=== PATIENT | female | born 1960 | race Caucasian/White ===

== ENCOUNTER 2016-06-18 08:27 | Emergency (ER) | payer MEDICAID ==
[~2016-06-18] VITALS: Ht 170.2 cm; Wt 51.3 kg
[2016-06-18] MEDS ORDERED: LISINOPRIL 20 MG TABLET ONE (08:56)
[2016-06-18] MEDS ORDERED: LORazepam 2 MG/ML, 1ML ONE (08:56)
[2016-06-18] MEDS ORDERED: LORazepam 2 MG/ML, 1ML IVPush ONE (09:00)
[2016-06-18] MEDS ORDERED: SODIUM CHLORIDE FLUSH 10ML SYR IVF ONE (09:00)
[2016-06-18] MEDS ORDERED: ALBUTEROL/IPRATROPIUM 2.5MG/0.5MG, 3 ML NPPB SCH (09:00)
[2016-06-18] MEDS ORDERED: ALBUTEROL/IPRATROPIUM 2.5MG/0.5MG, 3 ML ONE ×2 (09:20→10:52)
[2016-06-18 09:25] LABS: BLOOD UREA NITROGEN 16 mg/dL (7-18)
[2016-06-18 09:31] LABS: IS PT STATUS REG ER OR PRE ER? YES
[2016-06-18] MEDS ORDERED: ALBUTEROL/IPRATROPIUM 2.5MG/0.5MG, 3 ML NPPB ONE (10:30)
[2016-06-18 11:20] VITALS: BP 118/87
== END 2016-06-18 11:23 | disposition home or self-care (01) ==
LOC: ED 09:12
DX: J20.8 Acute bronchitis due to other specified organisms (principal); J45.909 Unspecified asthma, uncomplicated; J44.1 Chronic obstructive pulmonary disease with (acute) exacerbation
CPT/HCPCS: 36415; 71020; 80048; 82040; 83880; 84484; 85025; 93005; 94640; 96374; 99285; J2060; J7512; J7620

== ENCOUNTER 2016-08-15 08:20 | Emergency (ER) | payer MEDICAID ==
[~2016-08-15] VITALS: Ht 170.2 cm; Wt 56.1 kg
[2016-08-15 08:25] VITALS: BP 169/103
[2016-08-15] MEDS ORDERED: HYDROcodone/APAP 5/325 TABLET PO ONE (08:59)
[2016-08-15 09:43] LABS: ASPARTATE AMINO TRANSFERASE 23 U/L (15-37); BLOOD UREA NITROGEN 14 mg/dL (7-18)
[2016-08-15] MEDS ORDERED: HYDROcodone/APAP 5/325 TABLET ONE (09:54)
[2016-08-15] MEDS ORDERED: CLINDAMYCIN 300 MG CAPSULE PO ONE (10:00)
== END 2016-08-15 10:47 | disposition home or self-care (01) ==
LOC: ED 08:57
DX: L03.114 Cellulitis of left upper limb (principal); L03.91 Acute lymphangitis, unspecified; F17.210 Nicotine dependence, cigarettes, uncomplicated; I10 Essential (primary) hypertension; J44.9 Chronic obstructive pulmonary disease, unspecified
CPT/HCPCS: 36415; 80053; 85025; 99284

== ENCOUNTER 2016-08-15 23:05 | Emergency (ER) | payer MEDICAID ==
[2016-08-15 23:08] VITALS: BP 121/74
[2016-08-15] MEDS ORDERED: HYDROcodone/APAP 5/325 TABLET PO ONE (23:30)
[2016-08-15] MEDS ORDERED: HYDROcodone/APAP 5/325 TABLET ONE (23:34)
== END 2016-08-15 23:57 | disposition home or self-care (01) ==
LOC: ED 23:11
DX: R10.32 Left lower quadrant pain (principal); K41.91 Unilateral femoral hernia, without obstruction or gangrene, recurrent; I10 Essential (primary) hypertension; Z90.710 Acquired absence of both cervix and uterus
CPT/HCPCS: 99283

== ENCOUNTER 2018-02-08 17:07 | Emergency (ER) | payer MEDICAID ==
[~2018-02-08] VITALS: Ht 170.2 cm; Wt 54.5 kg
[2018-02-08 17:49] LABS: BASOPHILS # (AUTO) 0.02 x10^3/uL (0-0.1); BASOPHILS % (AUTO) 0 % (0-1); EOSINOPHILS # (AUTO) 0.19 x10^3/uL (0-0.4); EOSINOPHILS % (AUTO) 2 % (1-7); LYMPHOCYTES # (AUTO) 1.15 x10^3/uL (1-3.4); LYMPHOCYTES % (AUTO) 12 % (22-44); MD NO; MEAN CORPUSCULAR HEMOGLOBIN 32.1 pg (27.0-34.8); MEAN CORPUSCULAR HGB CONC 33.7 g/dL (32.4-35.8); MEAN CORPUSCULAR VOLUME 95.3 fL (80-100); MEAN PLATELET VOLUME 8.9 fL (7.4-10.4); MONOCYTES # (AUTO) 0.46 x10^3/uL (0.2-0.8); MONOCYTES % (AUTO) 5 % (2-9); NEUTROPHILS # (AUTO) 7.74 x10^3/uL (1.8-6.8); NEUTROPHILS % (AUTO) 81 % (42-75); PLATELET COUNT 293 x10^3/uL (130-400); RED BLOOD COUNT 5.12 x10^6/uL (3.82-5.3)
[2018-02-08 17:55] LABS: ALANINE AMINOTRANSFERASE 68 U/L (12-78); ALBUMIN 3.3 g/dL (3.4-5.0); ANION GAP 6 mmol/L (5-15); CALCIUM 8.5 mg/dL (8.5-10.1); CHLORIDE 112 mmol/L (98-107); CREATININE 0.93 mg/dL (0.55-1.02)
[2018-02-08 17:57] LABS: ALKALINE PHOSPHATASE 101 U/L (45-117); BILIRUBIN,TOTAL 0.3 mg/dL (0.2-1.0)
[2018-02-08 18:04] LABS: MICROSCOPIC AUTO
[2018-02-08 18:06] LABS: CULTURE INDICATED? YES
[2018-02-08 19:31] VITALS: BP 111/74
== END 2018-02-08 19:38 | disposition home or self-care (01) ==
LOC: ED 19:32
DX: K40.91 Unilateral inguinal hernia, without obstruction or gangrene, recurrent (principal); E11.9 Type 2 diabetes mellitus without complications; J44.9 Chronic obstructive pulmonary disease, unspecified; I10 Essential (primary) hypertension; I34.1 Nonrheumatic mitral (valve) prolapse; Z90.710 Acquired absence of both cervix and uterus; F17.200 Nicotine dependence, unspecified, uncomplicated
CPT/HCPCS: 36415; 74021; 80053; 81001; 85025; 87086; 99284

== ENCOUNTER 2018-04-08 13:03 | Emergency (ER) | payer MEDICAID ==
[~2018-04-08] VITALS: Ht 170.2 cm; Wt 51.1 kg
[2018-04-08 13:17] VITALS: BP 116/76
[2018-04-08] MEDS ORDERED: METHOCARBAMOL 750 MG TABLET PO ONE (13:30)
[2018-04-08] MEDS ORDERED: KETOROLAC 30 MG/1 ML IM ONE (13:30)
[2018-04-08] MEDS ORDERED: METHOCARBAMOL 750 MG TABLET ONE (13:35)
[2018-04-08] MEDS ORDERED: KETOROLAC 30 MG/1 ML ONE (13:35)
== END 2018-04-08 13:55 | disposition home or self-care (01) ==
LOC: ED 13:45
DX: M54.5 Low back pain (principal); E11.9 Type 2 diabetes mellitus without complications; I10 Essential (primary) hypertension; J44.9 Chronic obstructive pulmonary disease, unspecified; F41.1 Generalized anxiety disorder; F17.200 Nicotine dependence, unspecified, uncomplicated; Z90.710 Acquired absence of both cervix and uterus; Z87.09 Personal history of other diseases of the respiratory system
CPT/HCPCS: 96372; 99283; J1885

== ENCOUNTER 2018-06-16 02:22 | Emergency (ER) | payer MEDICAID ==
[~2018-06-16] VITALS: Ht 170.2 cm; Wt 50.4 kg
[2018-06-16 02:27] VITALS: BP 121/81
--- NOTE | 2018-06-16 02:36 | NUR ---
pt stated "I got scratched by a dog last night and now there is a red streak going up my right arm." Pt denies fevers at home. pt sitting up on gurney, monitors applied, siderails up x2, call light within reach. awaiting erp for eval and orders
[2018-06-16] MEDS ORDERED: BACITRACIN ZINC OINT 500U/GM, 0.9 GM ONE (02:50)
--- NOTE | 2018-06-16 02:55 | NUR ---
right arm cleaned, applied bacitracin oint and dressing.
[2018-06-16] MEDS ORDERED: ACETAMINOPHEN 325 MG TABLET ONE (02:58)
[2018-06-16] MEDS ORDERED: ACETAMINOPHEN 325 MG TABLET PO ONE (03:00)
== END 2018-06-16 03:16 | disposition home or self-care (01) ==
LOC: ED 03:10
DX: S50.811A Abrasion of right forearm, initial encounter (principal); L03.113 Cellulitis of right upper limb; J44.9 Chronic obstructive pulmonary disease, unspecified; I10 Essential (primary) hypertension; I34.1 Nonrheumatic mitral (valve) prolapse; X58.XXXA Exposure to other specified factors, initial encounter; Y93.89 Activity, other specified; Y92.89 Other specified places as the place of occurrence of the external cause; Y99.8 Other external cause status
CPT/HCPCS: 99283

== ENCOUNTER 2019-01-19 18:11 | Emergency (ER) | payer MEDICAID ==
[~2019-01-19] VITALS: Ht 170.2 cm; Wt 53.1 kg
[~2019-01-19 18:11] MED LIST: APIX5TAB PO; AZIT500T10 PO; CEFD300C37 PO; FLUT1DIS3 INH; GUAI600T31 PO; IPRA3AMP30 NPPB; NICO-485 TD; OXYcodone/APAP 5/325MG PO; POLY17PO5 PO; PRED10TA PO; TIOT18CA INH
[2019-01-19] MEDS ORDERED: ASPIRIN 81 MG TABLET CHEW ONE (18:52)
[2019-01-19] MEDS ORDERED: ALBUTEROL/IPRATROPIUM 2.5MG/0.5MG, 3 ML NPPB ONE ×2 (19:00→20:30)
[2019-01-19] MEDS ORDERED: ASPIRIN 81 MG TABLET CHEW PO ONE (19:00)
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
--- NOTE | 2019-01-19 19:04 | NUR ---
pt medicated per emar. pt tolerated well.
[2019-01-19 19:13] LABS: BASOPHILS # (AUTO) 0.02 x10^3/uL (0-0.1); BASOPHILS % (AUTO) 1 % (0-1); EOSINOPHILS # (AUTO) 0.09 x10^3/uL (0-0.4); EOSINOPHILS % (AUTO) 2 % (1-7); LYMPHOCYTES # (AUTO) 0.78 x10^3/uL (1-3.4); LYMPHOCYTES % (AUTO) 21 % (22-44); MD NO; MEAN CORPUSCULAR HEMOGLOBIN 32.6 pg (27.0-34.8); MEAN CORPUSCULAR HGB CONC 32.7 g/dL (32.4-35.8); MEAN CORPUSCULAR VOLUME 99.6 fL (80-100); MEAN PLATELET VOLUME 8.6 fL (7.4-10.4); MONOCYTES # (AUTO) 0.28 x10^3/uL (0.2-0.8); MONOCYTES % (AUTO) 8 % (2-9); NEUTROPHILS % (AUTO) 68 % (42-75); PLATELET COUNT 224 x10^3/uL (130-400); RED BLOOD COUNT 4.15 x10^6/uL (3.82-5.3); RED CELL DISTRIBUTION WIDTH 15.3 % (9.6-15.2)
[2019-01-19 19:18] LABS: ALANINE AMINOTRANSFERASE 32 U/L (12-78); ALBUMIN 2.6 g/dL (3.4-5.0); ANION GAP 8 mmol/L (5-15); CALCIUM 8.3 mg/dL (8.5-10.1); CHLORIDE 108 mmol/L (98-107)
[2019-01-19 19:23] LABS: ALKALINE PHOSPHATASE 87 U/L (45-117); BILIRUBIN,TOTAL 0.4 mg/dL (0.2-1.0); TOTAL PROTEIN 5.7 g/dL (6.4-8.2); TROPONIN I < 0.015 ng/mL (0.000-0.045)
[2019-01-19] MEDS ORDERED: OMNIPAQUE 350 MG/ML, 100ML BOTTLE ONE (19:30)
--- NOTE | 2019-01-19 19:48 | NUR ---
piv est on r ac at this time. pt tolerated well.
--- NOTE | 2019-01-19 19:56 | NUR ---
pt in ct now.
--- NOTE | 2019-01-19 20:10 | NUR ---
PT BACK TO ROOM FROM CT AT THIS TIME.
[2019-01-19] MEDS ORDERED: SODIUM CHLORIDE FLUSH 10ML SYR IVF ONE (20:30)
--- NOTE | 2019-01-19 21:08 | NUR ---
PT RESTING IN [facility]. PT'S AOX4. RESPS EVEN AND UNLABORED. ALL MONITORS IN PLACE. CALL LIGHT WITHIN REACH.
[2019-01-19] MEDS ORDERED: ALBUTEROL SULFATE 2.5 MG/3 ML ONE (22:00)
[2019-01-19] MEDS ORDERED: ALBUTEROL SULFATE 2.5 MG/3 ML NPPB ONE (22:00)
[2019-01-19 22:13] VITALS: BP 124/80
--- NOTE | 2019-01-19 22:28 | NUR ---
PT RESTING IN [facility]. RESPS EVEN AND UNLABORED. PT'S AOX4. ALL MONITORS IN PLACE. CALL LIGHT WITHIN REACH. AWAITING DISPO.
--- NOTE | 2019-01-19 22:56 | NUR ---
Patient given discharge instructions and they have confirmed that they understand the instructions. Patient ambulatory with steady gait.
== END 2019-01-19 22:57 | disposition home or self-care (01) ==
LOC: ED 19:05
DX: J44.1 Chronic obstructive pulmonary disease with (acute) exacerbation (principal); F17.200 Nicotine dependence, unspecified, uncomplicated; I10 Essential (primary) hypertension; Z90.710 Acquired absence of both cervix and uterus
CPT/HCPCS: 36415; 70360; 71045; 71275; 80053; 83880; 84484; 85025; 93005; 94640; 99285; J7512; J7613; J7620; Q9967

== ENCOUNTER 2019-02-23 16:38 | Emergency (ER) | payer MEDICAID ==
[~2019-02-23] VITALS: Ht 170.2 cm; Wt 54.4 kg
[2019-02-23] MEDS ORDERED: ALBUTEROL/IPRATROPIUM 2.5MG/0.5MG, 3 ML NPPB ONE (17:30)
[2019-02-23] MEDS ORDERED: ALBUTEROL/IPRATROPIUM 2.5MG/0.5MG, 3 ML ONE (17:33)
--- NOTE | 2019-02-23 17:45 | NUR ---
IV PLACED, UNABLE TO DRAW LABS WITH START. PT STATES IV PAINFUL, FLUSH 20CC NS WITHOUT ANY SIGN OF INFILTRATE. PT INSTRUCTED IF TOO PAINFUL, 2ND IV SHOULD BE PLACED. PT REFUSING ANY OTHER IV STARTS AT THIS TIME, STATING "NOBODY EVER CAN GET IT RIGHT, I WANT A ICE HANDLER". LAB CALLED TO DRAW.
[2019-02-23 17:58] LABS: BASOPHILS # (AUTO) 0.03 x10^3/uL (0-0.1); BASOPHILS % (AUTO) 1 % (0-1); EOSINOPHILS # (AUTO) 0.17 x10^3/uL (0-0.4); EOSINOPHILS % (AUTO) 3 % (1-7); LYMPHOCYTES # (AUTO) 1.64 x10^3/uL (1-3.4); LYMPHOCYTES % (AUTO) 32 % (22-44); MD NO; MEAN CORPUSCULAR HEMOGLOBIN 30.2 pg (27.0-34.8); MEAN CORPUSCULAR HGB CONC 32.1 g/dL (32.4-35.8); MEAN PLATELET VOLUME 8.4 fL (7.4-10.4); MONOCYTES # (AUTO) 0.39 x10^3/uL (0.2-0.8); MONOCYTES % (AUTO) 8 % (2-9); NEUTROPHILS # (AUTO) 2.89 x10^3/uL (1.8-6.8); NEUTROPHILS % (AUTO) 56 % (42-75); PLATELET COUNT 288 x10^3/uL (130-400); RED BLOOD COUNT 4.22 x10^6/uL (3.82-5.3); RED CELL DISTRIBUTION WIDTH 15.1 % (9.6-15.2)
[2019-02-23 18:10] LABS: ALBUMIN 2.8 g/dL (3.4-5.0); ANION GAP 4 mmol/L (5-15); CALCIUM 8.7 mg/dL (8.5-10.1); CHLORIDE 110 mmol/L (98-107); CREATININE 0.92 mg/dL (0.55-1.02)
[2019-02-23 18:13] LABS: TROPONIN I < 0.015 ng/mL (0.000-0.045)
[2019-02-23] MEDS ORDERED: SODIUM CHLORIDE FLUSH 10ML SYR IVF ONE (18:30)
--- NOTE | 2019-02-23 18:30 | NUR ---
2ND IV PLACED BY TASK RNJASSI.
[2019-02-23 20:49] VITALS: BP 122/61
== END 2019-02-23 20:51 | disposition home or self-care (01) ==
LOC: ED 17:50
DX: J20.8 Acute bronchitis due to other specified organisms (principal); B34.9 Viral infection, unspecified; I10 Essential (primary) hypertension; J44.9 Chronic obstructive pulmonary disease, unspecified; F17.200 Nicotine dependence, unspecified, uncomplicated; Z90.710 Acquired absence of both cervix and uterus
CPT/HCPCS: 36415; 71275; 80048; 82040; 84484; 85025; 93005; 94640; 99284; J7512; J7620

== ENCOUNTER 2019-06-28 11:59 | Emergency (ER) | payer MEDICAID ==
[~2019-06-28] VITALS: Ht 170.2 cm; Wt 47.6 kg
--- NOTE | 2019-06-28 12:08 | NUR ---
BIB [facility] FOR LEFT INGUINAL PAIN THAT STARTED 3 HOURS AGO. HX INGUINAL HERNIA. PT CONNECTED TO MONITORING. CALL LIGHT IN REACH. EKG DONE.
[2019-06-28] MEDS ORDERED: KETOROLAC 30 MG/1 ML ONE (12:57)
[2019-06-28] MEDS ORDERED: KETOROLAC 30 MG/1 ML IM ONE (13:00)
[2019-06-28] MEDS ORDERED: IBUPROFEN 800 MG TABLET ONE (13:02)
[2019-06-28] MEDS ORDERED: HYDROcodone/APAP 5/325 TABLET ONE (13:02)
--- NOTE | 2019-06-28 13:04 | NUR ---
PT GOING TO XRAY.
--- NOTE | 2019-06-28 13:11 | NUR ---
PT REFUSED TORADOL SHOT, "I HATE NEEDLES". NOTIFIED. MEDS ORDERED PER APR. PT OXYGEN LEVEL 88% RA, WHEN RESTING. PT STATES THAT'S HER BASELINE FOR HER COPD. NADN.
--- NOTE | 2019-06-28 13:14 | NUR ---
ALL RESULTS ARE BACK AT THIS TIME. CHART UP FOR RECHECK.
[2019-06-28] MEDS ORDERED: HYDROcodone/APAP 5/325 TABLET PO ONE (13:30)
[2019-06-28] MEDS ORDERED: IBUPROFEN 600 MG TABLET PO ONE (13:30)
--- NOTE | 2019-06-28 13:43 | NUR ---
PT RESTING ON GURNEY. RESP EVEN AND UNLABORED. CONSISTANT OXYGEN LEVEL AT 88%.
[2019-06-28 14:01] VITALS: BP 130/88
--- NOTE | 2019-06-28 14:02 | NUR ---
TASK RN: Patient/Caregiver given discharge instructions and they have confirmed that they understand the instructions. Patient ambulatory with steady gait.
== END 2019-06-28 14:03 | disposition home or self-care (01) ==
LOC: ED 12:11
DX: K40.91 Unilateral inguinal hernia, without obstruction or gangrene, recurrent (principal); R10.32 Left lower quadrant pain; I10 Essential (primary) hypertension; J44.9 Chronic obstructive pulmonary disease, unspecified; I44.30 Unspecified atrioventricular block; Z90.710 Acquired absence of both cervix and uterus
CPT/HCPCS: 74021; 93005; 99283

== ENCOUNTER 2019-08-10 13:30 | Emergency (ER) | payer MEDICAID ==
[~2019-08-10] VITALS: Ht 170.2 cm; Wt 52.0 kg
--- NOTE | 2019-08-10 13:42 | NUR ---
GIANCARLO PUGH FROM [facility]. PT C/O BILAT FLANK PAIN STARTING LAST NIGHT. GENERALIZED PAIN STARTING TODAY. PT REFUSED TO GET INTO GOWN. PT CONNECTED TO MONITORING. CALL LIGHT IN REACH. PT GETTING INTO GOWN AFTER MD AT BEDSIDE AND REQUESTED GOWN.
--- NOTE | 2019-08-10 13:46 | NUR ---
PT AMBULATED TO RESTROOM WITH STEADY GAIT TO PROVIDE URINE SAMPLE. UA ORDERED PER PROTOCOL AND SENT TO LAB.
[2019-08-10] MEDS ORDERED: KETOROLAC 30 MG/1 ML IVPush ONE (14:00)
[2019-08-10] MEDS ORDERED: SODIUM CHLORIDE 0.9% 1,000ML IVBOLUS ONE (14:00)
[2019-08-10] MEDS ORDERED: SODIUM CHLORIDE FLUSH 10ML SYR IVF ONE (14:00)
[2019-08-10 14:03] LABS: MICROSCOPIC INDICATED
[2019-08-10] MEDS ORDERED: KETOROLAC 30 MG/1 ML ONE (14:05)
--- NOTE | 2019-08-10 14:07 | NUR ---
PIV PLACED, LABS DRAWN. IVF RUNNING. IMPORT EXPORT MANAGER PER APR. LAB AT BEDSIDE FOR BLOOD CULTURES.
[2019-08-10 14:26] LABS: BASOPHILS # (AUTO) 0.02 x10^3/uL (0-0.1); BASOPHILS % (AUTO) 0 % (0-1); EOSINOPHILS # (AUTO) 0.02 x10^3/uL (0-0.4); EOSINOPHILS % (AUTO) 0 % (1-7); LYMPHOCYTES # (AUTO) 0.57 x10^3/uL (1-3.4); LYMPHOCYTES % (AUTO) 10 % (22-44); MD NO; MEAN CORPUSCULAR HEMOGLOBIN 30.6 pg (27.0-34.8); MEAN CORPUSCULAR VOLUME 92.8 fL (80-100); MEAN PLATELET VOLUME 9.1 fL (7.4-10.4); MONOCYTES # (AUTO) 0.34 x10^3/uL (0.2-0.8); MONOCYTES % (AUTO) 6 % (2-9); NEUTROPHILS # (AUTO) 5.06 x10^3/uL (1.8-6.8); NEUTROPHILS % (AUTO) 84 % (42-75); PLATELET COUNT 144 x10^3/uL (130-400); RED BLOOD COUNT 4.44 x10^6/uL (3.82-5.3); RED CELL DISTRIBUTION WIDTH 17.1 % (9.6-15.2)
[2019-08-10 14:32] LABS: ALBUMIN 2.6 g/dL (3.4-5.0); ANION GAP 7 mmol/L (5-15); CALCIUM 8.1 mg/dL (8.5-10.1); CHLORIDE 104 mmol/L (98-107); CREATININE 0.98 mg/dL (0.55-1.02)
--- NOTE | 2019-08-10 14:46 | NUR ---
ALL RESULTS ARE BACK AT THIS TIME. CHART UP FOR RECHECK.
[2019-08-10 14:57] VITALS: BP 103/72
== END 2019-08-10 16:18 | disposition home or self-care (01) ==
LOC: ED 16:17
DX: M79.652 Pain in left thigh (principal); M79.651 Pain in right thigh; R42 Dizziness and giddiness; M54.5 Low back pain; M54.9 Dorsalgia, unspecified; I21.9 Acute myocardial infarction, unspecified; J44.9 Chronic obstructive pulmonary disease, unspecified; Z90.710 Acquired absence of both cervix and uterus
CPT/HCPCS: 36415; 71045; 80048; 81001; 82040; 83605; 84145; 85025; 87040; 87086; 93005; 96361; 96374; 99285; J1885; J7030

== ENCOUNTER 2019-11-06 10:35 | Emergency (ER) | payer MEDICAID ==
[~2019-11-06] VITALS: Ht 160 cm; Wt 50.3 kg
[2019-11-06 10:45] VITALS: BP 123/75
--- NOTE | 2019-11-06 11:06 | NUR ---
PT SITTING UPRIGHT ON GURNEY ON CELL PHONE, NAD NOTED. ERP AT BEDSIDE. CALL LIGHT WITHIN REACH. PT DENIES ANY NEEDS AT THIS TIME.
--- NOTE | 2019-11-06 11:16 | NUR ---
Patient given discharge instructions and they have confirmed that they understand the instructions. Patient ambulatory with steady gait.
== END 2019-11-06 11:18 | disposition home or self-care (01) ==
LOC: ED 10:50
DX: L03.312 Cellulitis of back [any part except buttock and flank] (principal); I10 Essential (primary) hypertension; Z87.891 Personal history of nicotine dependence
CPT/HCPCS: 99283

== ENCOUNTER 2019-11-14 09:38 | Observation (INO) | payer MEDICAID ==
[~2019-11-14] VITALS: Ht 170.2 cm; Wt 52.6 kg
--- NOTE | 2019-11-14 09:51 | NUR ---
BIB EMS, C/O LLQ ABD PAIN. PT WITH HX OF HERNIA, RPTS "I FELT IT POP OUT THIS MORNING" VISABLE PROTRUTION NOTED TO LEFT GROING AREA. PAIN 11/23. JOSE JUAN COLUNGA AT BEDSIDE, ASSESSMENT AND POC DISCUSSED. QUESTIONS ANSWERED. PT ON MONITOR VSS, CALL LIGHT W/I REACH
[2019-11-14] MEDS ORDERED: ONDANSETRON 2MG/ML, 2ML ONE ×2 (09:56→15:01)
[2019-11-14] MEDS ORDERED: MORPHINE SULFATE 4 MG/ML, 1ML ONE ×2 (09:56→13:09)
[2019-11-14] MEDS ORDERED: LORazepam 2 MG/ML, 1ML ONE (09:57)
[2019-11-14] MEDS ORDERED: SODIUM CHLORIDE FLUSH 10ML SYR IVF ONE (10:00)
[2019-11-14] MEDS ORDERED: LORazepam 2 MG/ML, 1ML IVPush ONE (10:00)
[2019-11-14] MEDS ORDERED: ONDANSETRON 2MG/ML, 2ML IVPush ONE (10:00)
[2019-11-14] MEDS: MORPHINE SULFATE 4 MG/ML, 1ML IVPush PRN ×2 (10:17→13:12)
[2019-11-14 10:19] LABS: BASOPHILS # (AUTO) 0.02 x10^3/uL (0-0.1); BASOPHILS % (AUTO) 0 % (0-1); EOSINOPHILS # (AUTO) 0.07 x10^3/uL (0-0.4); EOSINOPHILS % (AUTO) 1 % (1-7); LYMPHOCYTES # (AUTO) 1.08 x10^3/uL (1-3.4); LYMPHOCYTES % (AUTO) 21 % (22-44); MD NO; MEAN PLATELET VOLUME 7.8 fL (7.4-10.4); MONOCYTES # (AUTO) 0.34 x10^3/uL (0.2-0.8); MONOCYTES % (AUTO) 7 % (2-9); NEUTROPHILS # (AUTO) 3.61 x10^3/uL (1.8-6.8); NEUTROPHILS % (AUTO) 71 % (42-75); PLATELET COUNT 233 x10^3/uL (130-400); RED BLOOD COUNT 4.98 x10^6/uL (3.82-5.3); RED CELL DISTRIBUTION WIDTH 15.5 % (9.6-15.2)
--- NOTE | 2019-11-14 10:22 | NUR ---
BREAK RN: PT MED NOTED FOR PAIN 11/23. SBAR RPT TO XENA CLARKE
[2019-11-14 10:31] LABS: ALANINE AMINOTRANSFERASE 19 U/L (12-78); ALBUMIN 3.3 g/dL (3.4-5.0); ANION GAP 5 mmol/L (5-15); CHLORIDE 110 mmol/L (98-107); CREATININE 0.87 mg/dL (0.55-1.02)
[2019-11-14 10:33] LABS: ALKALINE PHOSPHATASE 94 U/L (45-117); BILIRUBIN,TOTAL 0.3 mg/dL (0.2-1.0)
--- NOTE | 2019-11-14 10:51 | NUR ---
REC'D REPORT FROM VINCE Camilo RN, AT THIS TIME
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
--- NOTE | 2019-11-14 11:54 | NUR ---
TASK RN: GEN SURGERY PAGED FOR CONSULT. PT TO BE NPO
--- NOTE | 2019-11-14 13:13 | NUR ---
PT REPORTS INCREASED PAIN, BP WENT UP TO 210/115, UPDATED ERMD, MEDICATED PER MAR.
[2019-11-14] MEDS ORDERED: CHLORHEXIDINE 15 ML UDC MM STA (14:23)
[2019-11-14] MEDS ORDERED: CHLORHEXIDINE 15 ML UDC ONE (14:23)
--- NOTE | 2019-11-14 14:31 | NUR ---
REPORT GIVEN TO PRE-OP RN
[2019-11-14] MEDS ORDERED: BUPIVACAINE/PF 0.5% ONE (14:36)
[2019-11-14] MEDS ORDERED: EPINEPHRINE 1 MG/ML, 1ML ONE (14:36)
[2019-11-14] MEDS ORDERED: FENTANYL PF 100 MCG/2ML ONE ×4 (14:58→17:02)
[2019-11-14] MEDS ORDERED: MIDAZOLAM 1 MG/ML, 2ML ONE (14:58)
[2019-11-14] MEDS ORDERED: CEFAZOLIN 1,000 MG ONE (15:01)
[2019-11-14] MEDS ORDERED: GLYCOPYRROLATE 0.2MG/1ML, 5ML ONE (15:01)
[2019-11-14] MEDS ORDERED: PROPOFOL 10 MG/ML, 20ML ONE (15:01)
[2019-11-14] MEDS ORDERED: DEXAMETHASONE 4 MG/ML, 1ML ONE (15:01)
[2019-11-14] MEDS ORDERED: NEOSTIGMINE 1 MG/ML, 10ML ONE (15:01)
[2019-11-14] MEDS ORDERED: HYDROmorphone 1 MG/ML, 1ML INJ IVPush PRN (15:30)
[2019-11-14] MEDS ORDERED: ROCURONIUM 10MG/ML,5ML ONE (15:30)
[2019-11-14] MEDS ORDERED: morphine SULFATE 10 MG/ML, 1ML IVPush PRN (15:30)
[2019-11-14] MEDS ORDERED: hydrALAzine 20 MG/ML, 1ML IV PRN (15:30)
[2019-11-14] MEDS ORDERED: MEPERIDINE/PF 25MG/0.5ML IVPush PRN (15:30)
[2019-11-14] MEDS ORDERED: OXYcodone 5 MG/5 ML ORAL.SOL UDC PO PRN (15:30)
[2019-11-14] MEDS ORDERED: PROMETHAZINE 25 MG/ML, 1ML IVPush PRN (15:30)
[2019-11-14] MEDS ORDERED: HALOPERIDOL 5 MG/ML IV PRN (15:30)
[2019-11-14] MEDS ORDERED: ACETAMINOPHEN 325 MG TABLET PO PRN (15:30)
[2019-11-14] MEDS ORDERED: LABETALOL 5MG/ML, 20ML IV PRN (15:30)
[2019-11-14] MEDS ORDERED: OXYcodone 5 MG/5 ML ORAL.SOL UDC ONE (17:02)
[2019-11-14] MEDS: FENTANYL PF 100 MCG/2ML IV PRN ×2 (17:04→17:10)
[2019-11-14] MEDS ORDERED: hydrALAzine 20 MG/ML, 1ML ONE (17:22)
[2019-11-14] MEDS ORDERED: ALBUTEROL HFA 90 MCG/SPRAY INH PRN (19:30)
[2019-11-14] MEDS ORDERED: ONDANSETRON 2MG/ML, 2ML IV PRN (19:30)
[2019-11-14] MEDS ORDERED: ONDANSETRON 4 MG TABLET PO PRN (19:30)
[2019-11-14 20:00] VITALS: BP 135/89
[2019-11-14] MEDS: ACETAMINOPHEN 325 MG TABLET PO SCH (21:15)
[2019-11-14] MEDS: IBUPROFEN 200 MG TABLET PO SCH (21:15)
[2019-11-14] MEDS: OXYcodone IR 5MG TABLET PO PRN (21:45)
[2019-11-14 23:40] VITALS: BP 106/69
[2019-11-15] MEDS: OXYcodone IR 5MG TABLET PO PRN ×4 (01:22→17:29)
[2019-11-15 03:34] VITALS: BP_SYST 104; BP_SYST 112; BP_DIAS 75; BP_DIAS 78
[2019-11-15] MEDS: ACETAMINOPHEN 325 MG TABLET PO SCH ×4 (04:16→21:12)
[2019-11-15] MEDS: IBUPROFEN 200 MG TABLET PO SCH ×4 (04:16→21:12)
[2019-11-15 09:48] VITALS: BP 113/83
[2019-11-15 13:29] VITALS: BP 116/82
[2019-11-15 18:28] VITALS: BP 121/84
[2019-11-16 01:44] VITALS: BP 111/69
[2019-11-16] MEDS: IBUPROFEN 200 MG TABLET PO SCH ×3 (03:30→15:43)
[2019-11-16] MEDS: ACETAMINOPHEN 325 MG TABLET PO SCH ×3 (03:30→15:43)
[2019-11-16] MEDS: OXYcodone IR 5MG TABLET PO PRN ×4 (04:29→18:02)
[2019-11-16 07:17] VITALS: BP 117/87
[2019-11-16 12:30] VITALS: BP 122/82
[2019-11-16 13:55] VITALS: BP 119/82
[2019-11-18 07:50] VITALS: BP 103/50
== END 2019-11-16 18:13 | disposition home or self-care (01) ==
LOC: ED 10:40 → EDIP 13:45 → INTOOBSV 13:45 → 4NE 18:28
PROVIDERS: ADMIT Surgery; ATTEND Surgery
DX: K41.31 Unilateral femoral hernia, with obstruction, without gangrene, recurrent (principal); Z20.828 Contact with and (suspected) exposure to other viral communicable diseases; J44.9 Chronic obstructive pulmonary disease, unspecified; I10 Essential (primary) hypertension; F17.210 Nicotine dependence, cigarettes, uncomplicated; Z59.0 Homelessness; Z79.899 Other long term (current) drug therapy; Z90.710 Acquired absence of both cervix and uterus
CPT/HCPCS: 36415; 49557; 80053; 85025; 87635; 93005; 96374; 96375; 96376; 99284; C1781; G0378; J0171; J0360; J0690; J1100; J2060; J2250; J2270; J2405; J2704; J2710; J3010; S0020

== ENCOUNTER 2019-11-19 16:36 | Emergency (ER) | payer MEDICAID ==
[~2019-11-19] VITALS: Ht 170.2 cm; Wt 50.0 kg
--- NOTE | 2019-11-19 17:03 | NUR ---
JUAN. REPORT RECEIVED FROM EMS. +SI/HI FROM [facility] WITHOUT PLANS. PT HAD HERNIA SX 3 DAYS AGO. PT C/O ABD PAIN, BUT PT DOESN'T WANT TO TAKE ANY MEDS FOR PAIN. +ETOH TODAY. RESPS EVEN AND UNLABORED. ALL BELONGINGS PUT INTO ONE BAG AND PUT INTO THE LOCKER. SITTER OUTSIDE. ROOM SECURE.
--- NOTE | 2019-11-19 17:06 | NUR ---
PT AMB TO BR AND BACK TO ROOM WITH STEADY GAIT. URINE COLLECTED AND SENT.
--- NOTE | 2019-11-19 17:16 | NUR ---
RAND BUTTER AT BEDSIDE EVALUATING AT THIS TIME.
[2019-11-19 17:20] LABS: AMPHETAMINE SCREEN, URINE Positive (Negative); BARBITURATE SCREEN, URINE Negative (Negative); BENZODIAZEPINE SCREEN, URINE Negative (Negative); CANNABINOID SCREEN, URINE Negative (Negative); COCAINE SCREEN, URINE Negative (Negative); METHADONE SCREEN, URINE Negative (Negative); OPIATE SCREEN, URINE Negative (Negative)
--- NOTE | 2019-11-19 17:29 | NUR ---
pt agitated and yelled at this rn and emt. security paged. pt back to room. water provided.
[2019-11-19 17:31] LABS: MICROSCOPIC INDICATED
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
[2019-11-19 17:48] LABS: ALANINE AMINOTRANSFERASE 41 U/L (12-78); ALBUMIN 3.4 g/dL (3.4-5.0); ANION GAP 7 mmol/L (5-15); CHLORIDE 103 mmol/L (98-107); CREATININE 1.71 mg/dL (0.55-1.02); SALICYLATE LEVEL 2.5 mg/dL (2.8-20.0)
[2019-11-19 17:51] LABS: ALKALINE PHOSPHATASE 88 U/L (45-117); BILIRUBIN,TOTAL 0.5 mg/dL (0.2-1.0); TOTAL PROTEIN 7.5 g/dL (6.4-8.2)
[2019-11-19 17:56] LABS: BASOPHILS % (AUTO) 0 % (0-1); EOSINOPHILS % (AUTO) 7 % (1-7); LYMPHOCYTES % (AUTO) 23 % (22-44); MEAN CORPUSCULAR HEMOGLOBIN 30.4 pg (27.0-34.8); MEAN CORPUSCULAR HGB CONC 32.5 g/dL (32.4-35.8); MEAN PLATELET VOLUME 8.4 fL (7.4-10.4); MONOCYTES % (AUTO) 9 % (2-9); NEUTROPHILS % (AUTO) 61 % (42-75); PLATELET COUNT 280 x10^3/uL (130-400); RED BLOOD COUNT 4.86 x10^6/uL (3.82-5.3); RED CELL DISTRIBUTION WIDTH 15.1 % (9.6-15.2)
[2019-11-19 18:01] LABS: MD NO
--- NOTE | 2019-11-19 18:28 | NUR ---
diet tray provided at this time.
--- NOTE | 2019-11-19 19:13 | NUR ---
David sommers in [facility] - 11/19/19 at 1913 by DEWAYNE report received from edna branch
--- NOTE | 2019-11-19 19:14 | NUR ---
report given to edna childress.
--- NOTE | 2019-11-19 19:14 | NUR ---
RECEIVED REPORT FROM XENA PABLO. PT IN BED, JAY. IN VIEW OF SITTER.
[2019-11-19] MEDS ORDERED: IBUPROFEN 600 MG TABLET ONE (21:45)
[2019-11-19] MEDS ORDERED: IBUPROFEN 600 MG TABLET PO ONE (22:00)
[2019-11-19 22:05] VITALS: BP 97/61
--- NOTE | 2019-11-19 22:06 | NUR ---
THIS RN WITH PT TO IMAGING SITTER.
--- NOTE | 2019-11-19 23:45 | NUR ---
Break RN: patient requesting lowell crackjose maria. Provided.
--- NOTE | 2019-11-20 01:05 | NUR ---
PT IN BED, NADN. SLEEPING INTERMITTENTLY.
--- NOTE | 2019-11-20 01:46 | NUR ---
THIS RN AT BEDSIDE FOR TELEPSHYCH CONSULT. PT NEEDED CONTINUAL REMINDING TO WAKE UP AND SIT UP TO TALK WITH THE PROVIDER. PT BECAME IRRITATED WITH PROVIDER AND STATED "I DON'T KNOW WHAT KIND OF HELP I WANT YOU'RE SUPPOSED TO BE THE DOCTOR." PT UPDATED ON POC FOR D/C. PT STATES "AT THIS TIME OF NIGHT?" PT EDUCATED ABOUT TAXI VOUCHER TO HOMELESS LONG TERM. PT AGREEABLE TO PLAN. PT DENIED SI/ HI TO TELEPSYCH PROVIDER.
== END 2019-11-20 01:59 | disposition home or self-care (01) ==
LOC: ED 22:03
DX: F41.1 Generalized anxiety disorder (principal); Z72.9 Problem related to lifestyle, unspecified; R45.851 Suicidal ideations; R45.1 Restlessness and agitation; I10 Essential (primary) hypertension; J44.9 Chronic obstructive pulmonary disease, unspecified; I34.1 Nonrheumatic mitral (valve) prolapse; F17.210 Nicotine dependence, cigarettes, uncomplicated; Z90.710 Acquired absence of both cervix and uterus
CPT/HCPCS: 36415; 74021; 80053; 80307; 81001; 85025; 87086; 99284; 99406

== ENCOUNTER 2020-05-07 09:01 | Emergency (ER) | payer MEDICAID ==
[~2020-05-07] VITALS: Ht 170.2 cm; Wt 52.0 kg
[2020-05-07 09:18] VITALS: BP 155/83
[2020-05-07] MEDS ORDERED: PROPARACAINE OPHTH 0.5%, 15ML EACHEYE ONE (09:30)
[2020-05-07] MEDS ORDERED: FLUORESCEIN OPHTHALMIC 1 MG STRIP EACHEYE ONE (09:30)
[2020-05-07] MEDS ORDERED: FLUORESCEIN OPHTHALMIC 1 MG STRIP ONE (09:41)
[2020-05-07] MEDS ORDERED: PROPARACAINE OPHTH 0.5%, 15ML ONE (09:43)
--- NOTE | 2020-05-07 09:43 | NUR ---
PT BROUGHT BACK TO ROOM FROM LOBBY. PT CO BILATERAL EYE IRRITATION WITH DRAINAGE X2 DAYS. PT STATED THAT SHE IS ALSO OUT OF HER COPD INHALERS AND NEEDS A MEDICATION REFILL. PT DENIES ANY FEVER OR SOB.
[2020-05-07] MEDS ORDERED: ALBUTEROL/IPRATROPIUM 2.5MG/0.5MG, 3 ML ONE (10:14)
--- NOTE | 2020-05-07 10:29 | NUR ---
DISCHARGE INSTRUCTIONS REVIEWED WITH PT. ALL QUESTIONS ANSWERED AT THIS TIME.
[2020-05-07] MEDS ORDERED: ALBUTEROL/IPRATROPIUM 2.5MG/0.5MG, 3 ML NPPB ONE (10:30)
== END 2020-05-07 10:33 | disposition home or self-care (01) ==
LOC: ED 09:41
DX: H10.023 Other mucopurulent conjunctivitis, bilateral (principal); I10 Essential (primary) hypertension; J44.9 Chronic obstructive pulmonary disease, unspecified; Z76.0 Encounter for issue of repeat prescription
CPT/HCPCS: 99283

== ENCOUNTER 2020-05-16 10:03 | Emergency (ER) | payer MEDICAID ==
[~2020-05-16] VITALS: Ht 170.2 cm; Wt 50.9 kg
[2020-05-16 10:07] VITALS: BP 146/92
--- NOTE | 2020-05-16 10:14 | NUR ---
PATIENT WALKED BACK FROM TRIAGE WITH CHIEF C/O LEFT HAND INJURY.. PATIENT STATES YESTERDAY AROUND 0500 PM SHE FELL DOWN SOME STEPS AND LANDED ON HER LEFT HAND. PATIENT HAS FULL ROM IN WRIST AND POINTER AND MIDDLE FINGER. LEFT HAND IS SWOLLEN AND PAINFUL. NADN, CALL LIGHT WITHIN REACH.
[2020-05-16] MEDS ORDERED: ONDANSETRON ODT 4 MG PO ONE (10:30)
[2020-05-16] MEDS ORDERED: HYDROcodone/APAP 5/325 TABLET PO ONE (10:30)
[2020-05-16] MEDS ORDERED: ONDANSETRON ODT 4 MG ONE (10:34)
[2020-05-16] MEDS ORDERED: HYDROcodone/APAP 5/325 TABLET ONE (10:34)
--- NOTE | 2020-05-16 10:41 | NUR ---
PATIENT MEDICATED PER eMAR. X-RAY AT BEDSIDE.
--- NOTE | 2020-05-16 10:56 | NUR ---
ERMD AT BEDSIDE TO DISCUSS POC. OUTSIDE SALESPERSON AT BEDSIDE FOR SPLINT.
== END 2020-05-16 11:36 | disposition home or self-care (01) ==
LOC: ED 10:44
DX: S62.647A Nondisplaced fracture of proximal phalanx of left little finger, initial encounter for closed fracture (principal); F17.210 Nicotine dependence, cigarettes, uncomplicated; W01.0XXA Fall on same level from slipping, tripping and stumbling without subsequent striking against object, initial encounter; Y93.01 Activity, walking, marching and hiking; Y92.89 Other specified places as the place of occurrence of the external cause; Y99.8 Other external cause status
CPT/HCPCS: 29125; 73130; 99283; Q0162

== ENCOUNTER 2020-06-04 19:03 | Emergency (ER) | payer MEDICAID ==
[~2020-06-04] VITALS: Ht 170.2 cm; Wt 50.8 kg
[2020-06-04 19:13] VITALS: BP 123/82
--- NOTE | 2020-06-04 19:18 | NUR ---
EKG AND VA'S DONE IN TRIAGE.
[2020-06-04 20:34] LABS: BASOPHILS % (AUTO) 1 % (0-1); EOSINOPHILS % (AUTO) 3 % (1-7); LYMPHOCYTES % (AUTO) 19 % (22-44); MEAN CORPUSCULAR HEMOGLOBIN 31.9 pg (27.0-34.8); MEAN CORPUSCULAR HGB CONC 33.6 g/dL (32.4-35.8); MEAN PLATELET VOLUME 8.7 fL (7.4-10.4); MONOCYTES % (AUTO) 7 % (2-9); NEUTROPHILS % (AUTO) 70 % (42-75); PLATELET COUNT 216 x10^3/uL (130-400); RED BLOOD COUNT 4.69 x10^6/uL (3.82-5.3); RED CELL DISTRIBUTION WIDTH 15.3 % (9.6-15.2)
[2020-06-04 20:39] LABS: MD NO
[2020-06-04 20:45] LABS: ALANINE AMINOTRANSFERASE 38 U/L (12-78); ALBUMIN 3.5 g/dL (3.4-5.0); ANION GAP 4 mmol/L (5-15); CALCIUM 9.2 mg/dL (8.5-10.1); CHLORIDE 105 mmol/L (98-107); CREATININE 0.97 mg/dL (0.55-1.02)
[2020-06-04 20:50] LABS: ALKALINE PHOSPHATASE 104 U/L (45-117); BILIRUBIN,TOTAL 0.5 mg/dL (0.2-1.0); TOTAL PROTEIN 7.3 g/dL (6.4-8.2); TROPONIN I < 0.015 ng/mL (0.000-0.045)
[2020-06-04] MEDS ORDERED: ERYTHROMYCIN OPHTH 0.5%, 1GM EACHEYE ONE (21:30)
== END 2020-06-04 21:23 | disposition home or self-care (01) ==
LOC: ED 19:34
DX: H10.33 Unspecified acute conjunctivitis, bilateral (principal); R07.9 Chest pain, unspecified; R94.31 Abnormal electrocardiogram [ECG] [EKG]; I10 Essential (primary) hypertension; J44.9 Chronic obstructive pulmonary disease, unspecified; F17.210 Nicotine dependence, cigarettes, uncomplicated; Z90.710 Acquired absence of both cervix and uterus
CPT/HCPCS: 36415; 71045; 80053; 84145; 84484; 85025; 93005; 99285; 99406

== ENCOUNTER 2020-07-10 08:48 | Emergency (ER) | payer MEDICAID ==
[~2020-07-10] VITALS: Ht 170.2 cm; Wt 49.8 kg
--- NOTE | 2020-07-10 09:31 | NUR ---
ASSUMED CARE OF PT FROM [facility]. PT C/O CHEST PAIN, BACK PAIN, AND EYE DRAINAGE SINCE THIS AM. SHE STATES HER SYMPTOMS STARTED THIS AM. HER CP,BACK PAIN ARE EXACERBATED BY BREATHING AND RELIEVED BY RUBBING THE AREAS BUT"IT TAKES ABOUT 5 MINUTES, LIKE A DISHA HORSE."
[2020-07-10] MEDS ORDERED: ALBUTEROL/IPRATROPIUM 2.5MG/0.5MG, 3 ML ONE (10:17)
[2020-07-10] MEDS ORDERED: ALBUTEROL/IPRATROPIUM 2.5MG/0.5MG, 3 ML NPPB ONE (10:30)
--- NOTE | 2020-07-10 10:36 | NUR ---
PT REPORTS SHE IS FEELING BETTER AFTER BRETHING TREATMENT. WAITING FOR CXR RESULTS.
[2020-07-10 11:05] VITALS: BP 151/80
--- NOTE | 2020-07-10 11:06 | NUR ---
RECEIVED REPORT FROM PATRICA. JAY ROYAL. PT ASKING FOR YADIRA.
--- NOTE | 2020-07-10 11:39 | NUR ---
Patient given discharge instructions and they have confirmed that they understand the instructions. Patient ambulatory with steady gait.
== END 2020-07-10 11:41 | disposition home or self-care (01) ==
LOC: ED 09:16
DX: J45.41 Moderate persistent asthma with (acute) exacerbation (principal); H10.023 Other mucopurulent conjunctivitis, bilateral; R06.02 Shortness of breath; I10 Essential (primary) hypertension; J44.9 Chronic obstructive pulmonary disease, unspecified; Z90.710 Acquired absence of both cervix and uterus
CPT/HCPCS: 71045; 93005; 94640; 99283

== ENCOUNTER 2020-10-09 22:44 | Emergency (ER) | payer MEDICAID ==
[~2020-10-09] VITALS: Ht 170.2 cm; Wt 52.2 kg
[2020-10-09] MEDS ORDERED: SODIUM CHLORIDE FLUSH 10ML SYR IVF ONE (23:30)
[2020-10-09] MEDS ORDERED: ONDANSETRON 2MG/ML, 2ML IVPush ONE (23:30)
[2020-10-09] MEDS ORDERED: SODIUM CHLORIDE 0.9% 1,000ML IVBOLUS ONE (23:30)
[2020-10-09 23:58] LABS: BASOPHILS % (AUTO) 1 % (0-1); EOSINOPHILS % (AUTO) 2 % (1-7); LYMPHOCYTES % (AUTO) 29 % (22-44); MEAN CORPUSCULAR HGB CONC 33.5 g/dL (32.4-35.8); MEAN PLATELET VOLUME 8.7 fL (7.4-10.4); MONOCYTES % (AUTO) 7 % (2-9); NEUTROPHILS % (AUTO) 62 % (42-75); PLATELET COUNT 250 x10^3/uL (130-400); RED BLOOD COUNT 4.25 x10^6/uL (3.82-5.3); RED CELL DISTRIBUTION WIDTH 14.8 % (9.6-15.2)
[2020-10-10 00:08] LABS: ALANINE AMINOTRANSFERASE 32 U/L (12-78); ALBUMIN 3.3 g/dL (3.4-5.0); ANION GAP 9 mmol/L (5-15); CALCIUM 8.7 mg/dL (8.5-10.1); CHLORIDE 110 mmol/L (98-107); CREATININE 0.98 mg/dL (0.55-1.02)
[2020-10-10 00:10] LABS: ALKALINE PHOSPHATASE 86 U/L (45-117); BILIRUBIN,TOTAL 0.3 mg/dL (0.2-1.0)
[2020-10-10] MEDS ORDERED: ONDANSETRON 2MG/ML, 2ML ONE (00:49)
[2020-10-10] MEDS ORDERED: METHOCARBAMOL 750 MG TABLET PO ONE (01:00)
[2020-10-10] MEDS ORDERED: KETOROLAC 30 MG/1 ML IVPush ONE (01:00)
[2020-10-10] MEDS ORDERED: KETOROLAC 30 MG/1 ML ONE (01:11)
[2020-10-10] MEDS ORDERED: METHOCARBAMOL 750 MG TABLET ONE (01:11)
[2020-10-10 02:11] LABS: MICROSCOPIC AUTO
--- NOTE | 2020-10-10 02:27 | NUR ---
pt report feeling "a little bit better" after meds. pt mostly sleeping, awakens easily to verbal stimuli
[2020-10-10 02:30] VITALS: BP 117/81
--- NOTE | 2020-10-10 02:41 | NUR ---
Patient given discharge instructions and they have confirmed that they understand the instructions. Patient ambulatory with steady gait. NAD, all questions answered appropriately, denies additional needs at this time. No personal belongings left in room after discharge.
== END 2020-10-10 02:51 | disposition home or self-care (01) ==
LOC: ED 23:59
DX: S39.012A Strain of muscle, fascia and tendon of lower back, initial encounter (principal); F10.129 Alcohol abuse with intoxication, unspecified; Z72.9 Problem related to lifestyle, unspecified; I10 Essential (primary) hypertension; J44.9 Chronic obstructive pulmonary disease, unspecified; J45.909 Unspecified asthma, uncomplicated; Z90.710 Acquired absence of both cervix and uterus; F17.200 Nicotine dependence, unspecified, uncomplicated; Y90.0 Blood alcohol level of less than 20 mg/100 ml; X58.XXXA Exposure to other specified factors, initial encounter; Y93.89 Activity, other specified; Y92.89 Other specified places as the place of occurrence of the external cause; Y99.8 Other external cause status
CPT/HCPCS: 36415; 80053; 80320; 81001; 85025; 87086; 96361; 96374; 96375; 99284; J1885; J2405; J7030; G0480